=== PATIENT | male | born 1930 | race American Indian/Alaskan Native ===

== ENCOUNTER 2016-08-14 16:20 | Emergency (ER) | payer BC, MEDICARE ==
[2016-08-14 16:35] VITALS: BMI 34.4
[2016-08-14 16:40] VITALS: RESP 18; O2SAT 99
--- NOTE | 2016-08-14 16:47 | ED PDOC ---
Arrival/HPI - General Chief Complaint: Trauma Time Seen by Provider: 08/14/16 16:37 Historian: Patient - History of Present Illness Narrative History of Present Illness (Text): 08/14/16 16:42 85 y/o male, pmh including htn/hyperlipidemia/dm, nkda, not on any anticoagulant , here with the daughter, walk to the ER complaining about the lumbar pain s/p slipped and landed on the lumbar region about 4 days ago on the ice. Aching pain, non-radiating, no urinary incontinence or retention, no hematuria or flank pain, no night sweat, no dizziness, no numbness or tingling, no urinary symptoms, no other medical or psychological complaints Past Medical History - Provider Review Nursing Documentation Reviewed: Yes - Tetanus Immunization Tetanus Immunization: Unknown - Cardiac Hx Hypertension: Yes Hx Pacemaker: No - Pulmonary Hx Respiratory Disorders: No - Neurological Hx Paralysis: No - HEENT Hx HEENT Disorder: No - Renal Hx Renal Disorder: No - Endocrine/Metabolic Hx Endocrine Disorders: Yes Hx Diabetes Mellitus Type 2: Yes - Hematological/Oncological Hx Blood Transfusions: No Hx Blood Transfusion Reaction: No - Integumentary Hx Dermatological Disorder: No - Musculoskeletal/Rheumatological Hx Musculoskeletal Disorders: Yes (R knee and r ankle surgery from injury 30 years ago) - Gastrointestinal Hx Gastrointestinal Disorders: No - Genitourinary/Gynecological Hx Genitourinary Disorders: No - Psychiatric Hx Emotional Abuse: No Hx Physical Abuse: No Hx Substance Use: No - Surgical History Hx Coronary Stent: Yes - Anesthesia Hx Anesthesia Reactions: No Hx Malignant Hyperthermia: No - Suicidal Assessment Feels Threatened In Home Enviroment: No Family/Social History - Physician Review Nursing Documentation Reviewed: Yes Family/Social History: Unknown Family HX Smoking Status: cigar 1xwk Hx Alcohol Use: No Hx Substance Use: No Hx Substance Use Treatment: No Allergies/Home Meds Allergies/Adverse Reactions: Allergies No Known Allergies Allergy (Verified 08/14/16 16:34) Home Medications: Home Meds Medication Instructions Recorded Confirmed Aspirin 81 mg PO DAILY 08/02/13 05/01/15 Irbesartan [Avapro] 150 mg PO DAILY 08/19/14 05/01/15 Aejpo-7-Mivf Ethyl Esters [OMEGA 3] 1,000 mg PO DAILY 08/20/14 05/01/15 Review of Systems - Review of Systems Constitutional: absent: Fatigue, Fevers Eyes: absent: Vision Changes ENT: absent: Hearing Changes Respiratory: absent: SOB, Cough, Sputum Cardiovascular: absent: Chest Pain Gastrointestinal: absent: Abdominal Pain, Nausea, Vomiting Musculoskeletal: Back Pain. absent: Arthralgias, Neck Pain, Joint Swelling, Myalgias Skin: absent: Rash, Pruritis, Skin Lesions, Laceration, Abscess, Ulcer, Cellulitis Physical Exam Vital Signs Reviewed: Yes Vital Signs Temp Pulse Resp BP Pulse Ox 08/14/16 16:54 98.1 F 08/14/16 16:39 100 H 18 117/65 99 Temperature: Afebrile Blood Pressure: Normal Pulse: Regular Respiratory Rate: Normal Appearance: Positive for: Well-Appearing, Non-Toxic, Comfortable Pain Distress: Moderate Mental Status: Positive for: Alert and Oriented X 3 - Systems Exam Head: Present: Atraumatic, Normocephalic Pupils: Present: PERRL Extroacular Muscles: Present: EOMI Conjunctiva: Present: Normal Mouth: Present: Moist Mucous Membranes Neck: Present: Normal Range of Motion, Trachea Midline. No: MIDLINE TENDERNESS , Paraspinal Tenderness, Lymphadenopathy Respiratory/Chest: Present: Clear to Auscultation, Good Air Exchange. No: Respiratory Distress, Accessory Muscle Use Cardiovascular: Present: Regular Rate and Rhythm, Normal S1, S2. No: Murmurs Abdomen: Present: Normal Bowel Sounds. No: Tenderness, Distention, Peritoneal Signs Back: Present: Normal Inspection, Midline Tenderness, Paraspinal Tenderness, Other (Thoracic to LS spine: +ttp on the mid line lumbar and rt. paraspinal region, no other midline or paraspinal tenderness, no cva tenderness, FROM without limitation, sensation intact, motor 5/5. ). No: CVA Tenderness, Pain with Leg Raise, Decubitus Ulcer Upper Extremity: Present: Normal Inspection. No: Cyanosis, Edema Lower Extremity: Present: Normal Inspection. No: Edema Neurological: Present: GCS=15, CN II-XII Intact, Speech Normal, Motor Func Grossly Intact, Gait Normal, Memory Normal Skin: Present: Warm, Dry, Normal Color. No: Rashes Psychiatric: Present: Alert, Oriented x 3, Normal Insight, Normal Concentration Medical Decision Making ED Course and Treatment: 08/14/16 16:51 -CT lumbar -Lidoderm patch -observe and reassess 08/14/16 17:29 -CT show L2 compression fracture with no focal neurological deficits, pt. doesn' t have much pain, no numbness or tingling, no difficulty ambulating. Case discussed with Dr. Morales including the CT result, suggest discharge home with outpatient follow up with the pmd. -Discharge home with lidoderm patch, tramadol with tylenol, bed rest, cane, follow up with your own pmd and neurosurgery for out patient follow up with MRI if clinically indicated by your own pmd and specialist, return to the ER for any new or worsening signs or symptoms. - RAD Interpretation Radiology Orders: 08/14/16 16:47 LUMBAR SPINE W/O CONTRAST [CT] Stat CT lumbar spine without IV contrast Indication: Fall and lower lumbar pain for 4 days Comparison: None available Technique: Noncontrast axial images of the lumbar spine were provided. Sagittal and coronal reformatted images were generated and reviewed. Total exam DLP: 1190.85 MGy-cm Findings: Loss of vertebral body height of L2 consistent with a compression fracture ( approximately 20 percent loss of height), age indeterminate. Osseous demineralization. Mild multilevel degenerative changes. Intervertebral disc space narrowing at L5-S1. Paraspinal soft tissues appear unremarkable. Limited visualization of the intra-abdominal and intrapelvic contents demonstrates a dense atherosclerotic calcifications of the aorta and branches. Impression: L2 compression fracture appears acute. Osseous demineralization. Multilevel degenerative changes. Hair Cutter: Radiologist - Medication Orders Current Medication Orders: Lidocaine (Lidoderm) 1 ea TD DAILY JAMES - PA / [employer] / Resident Statement MD/DO has reviewed & agrees with the documentation as recorded. Disposition/Present on Arrival - Present on Arrival Any Indicators Present on Arrival: No History of DVT/PE: Yes History of Uncontrolled Diabetes: No Urinary Catheter: No History of Decub. Ulcer: No History Surgical Site Infection Following: None - Disposition Have Diagnosis and Disposition been Completed?: Yes Diagnosis: Lumbar compression fracture Disposition: HOME/ ROUTINE Disposition Time: 17:31 Patient Plan: Discharge Condition: GOOD Discharge Instructions (ExitCare): Vertebroplasty (GEN), Thoracolumbar Fracture (ED) Print Language: FRENCH Additional Instructions: Discharge home with lidoderm patch, tramadol with tylenol, bed rest, cane, follow up with your own pmd and neurosurgery for out patient follow up with MRI if clinically indicated by your own pmd and specialist, return to the ER for any new or worsening signs or symptoms. Prescriptions: Lidocaine 5% [Lidoderm] 1 patch TOP DAILY #10 patch traMADol/Acetaminophen [Ultracet 37.5/325 mg] 1 tab PO QID PRN #8 tab PRN Reason: Other Referrals: David Abraham MD [Family Provider] - Follow up with primary Patrick Gallegos MD [Staff Provider] - Follow up with primary Toby Figueroa MD [Staff Provider] - Follow up with primary Forms: WORK NOTE
[2016-08-14 16:55] VITALS: TEMP 98.1
[2016-08-14] MEDS ORDERED: Lidocaine 5% Patch TD SCH (17:00)
--- NOTE | 2016-08-14 17:18 | CT ---
CT lumbar spine without IV contrast Indication: Fall and lower lumbar pain for 4 days Comparison: None available Technique: Noncontrast axial images of the lumbar spine were provided. Sagittal and coronal reformatted images were generated and reviewed. Total exam DLP: 1190.85 MGy-cm Findings: Loss of vertebral body height of L2 consistent with a compression fracture (approximately 20 percent loss of height), age indeterminate. Osseous demineralization. Mild multilevel degenerative changes. Intervertebral disc space narrowing at L5-S1. Paraspinal soft tissues appear unremarkable. Limited visualization of the intra-abdominal and intrapelvic contents demonstrates a dense atherosclerotic calcifications of the aorta and branches. Impression: L2 compression fracture appears acute. Osseous demineralization. Multilevel degenerative changes. Findings discussed with JESUS Salcido on 08/14/16 at 5:16 p.m.
[2016-08-14 17:42] VITALS: BP 115/61; PULSE 91
== END 2016-08-14 17:50 | disposition home or self-care (01) ==
LOC: ED 16:20
DX: M48.56XA Collapsed vertebra, not elsewhere classified, lumbar region, initial encounter for fracture (principal); W00.0XXA Fall on same level due to ice and snow, initial encounter; E78.5 Hyperlipidemia, unspecified; I10 Essential (primary) hypertension; E11.9 Type 2 diabetes mellitus without complications